=== PATIENT | male | born 1950 | race Two or more races ===

== ENCOUNTER → 2017-09-03 | Day surgery (SDC) | payer MEDICARE, OTHER ==
[~2017-09-03] MED LIST: BUPIVACAINE 0.5% (SDV) 30 ML INJ; BUPIVACAINE 0.5%/EPI (SDV) 30 ML INJ; CEFAZOLIN 1 GM INJ; DEXAMETHASONE 4 MG/ML 1 ML INJ; DIPHENHYDRAMINE 50 MG INJ IV; FENTAnyl 50 MCG/ML VIAL IV; GELATIN SIZE 100 SPONGE; HYDROmorphONE 1 MG/5 ML IV SYRINGE IV; LABETALOL HCL 20MG INJ IV; LIDOCAINE 0.5% (MDV) 50 ML INJ; LIDOCAINE 1%/EPI 30 ML INJ; LIDOCAINE 2% (SDV) 5 ML INJ; MEPERIDINE 25 MG INJ IV; METHYLPREDNISOLONE ACET 80 MG/ML 1 ML; METOCLOPRAMIDE 10 MG INJ IV; MIDAZOLAM 1 MG/ML 2 ML INJ; ONDANSETRON 4 MG INJ; ONDANSETRON 4 MG INJ IV; PROPOFOL 20 ML; ROCURONIUM 50 MG INJ; THROMBIN 5000 UNIT VIAL; hydrALAzine 20 MG INJ
[2017-09-03] MEDS: THROMBIN 5000 UNIT VIAL TOP
[2017-09-03] MEDS: LIDOCAINE 0.5% (SDV) 50 ML INJ INJ
[2017-09-03] MEDS: HEMOSTATIC MATRIX SYG INJ
[2017-09-03] MEDS: BUPIVACAINE 0.5%/EPI (SDV) 30 ML INJ INJ
[2017-09-03] MEDS: POLYMYXIN/BACITRACIN 1L IRRIG IRR
[2017-09-03 06:14] LABS: ADD MAN DIFF? NO
[2017-09-03 06:24] LABS: BASOPHIL # 0.1 10^3/ul (0.0-0.1); BASOPHILS % 1.9 % (0.0-2.0); EOSINOPHILS # 0.4 10^3/ul (0.0-0.5); EOSINOPHILS % 5.6 % (0.0-7.0); HEMATOCRIT 41.8 % (42.0-52.0); LYMPHOCYTES # 1.7 10^3/ul (0.8-2.9); LYMPHOCYTES % 26.6 % (15.0-51.0); MEAN CORPUSCULAR HEMOGLOBIN 31.2 pg (29.0-33.0); MEAN CORPUSCULAR HGB CONC 33.5 g/dl (32.0-37.0); MEAN CORPUSCULAR VOLUME 93.1 fl (82.0-101.0); MEAN PLATELET VOLUME 11.1 fl (7.4-10.4); MONOCYTE # 0.5 10^3/ul (0.3-0.9); MONOCYTES % 8.1 % (0.0-11.0); NEUTROPHIL # 3.7 10^3/ul (1.6-7.5); NEUTROPHILS % 57.5 % (39.0-77.0); PLATELET COUNT 217 10^3/UL (140-415); RED BLOOD COUNT 4.49 10^6/ul (4.70-6.10); RED CELL DISTRIBUTION WIDTH 12.4 % (11.5-14.5)
[2017-09-03 06:24] LABS: WHITE BLOOD COUNT 6.4 10^3/ul (4.8-10.8)
[2017-09-03 06:44] LABS: INR 0.99; PROTIME 13.2 Sec (11.9-14.9)
[2017-09-03 06:49] LABS: ALANINE AMINOTRANSFERASE 53 IU/L (13-69); ALBUMIN 4.9 g/dl (3.3-4.9); ALBUMIN/GLOBULIN RATIO 1.58; ALKALINE PHOSPHATASE 69 IU/L (42-121); ANION GAP 19 (8-16); ASPARTATE AMINO TRANSFERASE 42 IU/L (15-46); BILIRUBIN,INDIRECT 0.6 mg/dl (0-1.1); BILIRUBIN,TOTAL 0.6 mg/dl (0.2-1.3); CARBON DIOXIDE 25 mmol/L (21-31); CHLORIDE 105 mmol/L (97-110); GLUCOSE 96 mg/dl (70-220)
[2017-09-03 06:56] LABS: BLOOD UREA NITROGEN 27 mg/dl (7-20); CALCIUM 9.6 mg/dl (8.4-10.2); CREATININE 1.01 mg/dl (0.61-1.24); POTASSIUM 4.3 mmol/L (3.5-5.1)
[2017-09-03 07:00] LABS: SODIUM 145 mmol/L (135-144)
== END | disposition home or self-care (01) ==
LOC: SDS 05:35
DX: M48.061 Spinal stenosis, lumbar region without neurogenic claudication (principal); I10 Essential (primary) hypertension; E78.5 Hyperlipidemia, unspecified
CPT/HCPCS: 63047; 72100; 80053; 85025; 85610; 85730